=== PATIENT | male | born 1940 ===

== ENCOUNTER 2017-05-27 10:15 | Inpatient (IN) | payer MEDICARE ==
[2017-05-21 10:16] VITALS: BMI 27.8
[2017-05-27] MEDS ORDERED: (Novolin R) Insulin Human Regular 100 units/ml vial IV ONE ×3 (11:07→12:25)
[2017-05-27] MEDS ORDERED: Sodium Chloride 0.9% 1,000 ML IV ONE (11:16)
[2017-05-27] MEDS ORDERED: Lidocaine 1% Inj (20ml) ONE (13:00)
[2017-05-27] MEDS ORDERED: Bupivacaine HCl 0.25% PF (10 ml) Inj ONE (13:00)
[2017-05-27] MEDS ORDERED: ceFAZolin IV 2 gm in Dextrose 2 GM/50 ML BAG IVPB ONE (13:00)
[2017-05-27] MEDS ORDERED: Propofol 10 mg/ml Inj (20 ML) ONE (13:11)
[2017-05-27] MEDS ORDERED: Lidocaine Hydrochloride 5 ML INJ ONE (13:12)
[2017-05-27] MEDS: Bupivacaine HCl 0.25% PF (10 ml) Inj ONE ×4 (13:51→14:45)
[2017-05-27] MEDS ORDERED: ePHEDrine 50 mg/ml Inj ONE (14:09)
[2017-05-27] MEDS ORDERED: HYDROmorphone 0.5 mg/0.5 ml ISec IVP PRN (15:03)
[2017-05-27] MEDS ORDERED: Oxycodone/Acetaminophen 5/325 mg Tab PO PRN (15:27)
[2017-05-27] MEDS ORDERED: Lactated Ringer's 1,000 ML IV ONE (16:00)
[2017-05-27 17:40] VITALS: RESP 20
--- NOTE | 2017-05-28 03:37 | OP ---
PROCEDURE DATE: 05/27/2017 PREOPERATIVE DIAGNOSIS: Bilateral incarcerated inguinal hernias. POSTOPERATIVE DIAGNOSIS: Bilateral incarcerated inguinal hernias. PROCEDURE PERFORMED: Repair of incarcerated bilateral inguinal hernias. SURGEON: Anshu Sy MD ANESTHESIA: General endotracheal. ESTIMATED BLOOD LOSS: 30 mL. POSTOPERATIVE CONDITION: Stable. INDICATIONS FOR SURGERY: This is a 76-year-old male presented with two painful large inguinal hernias who now will undergo bilateral repair. GROSS FINDINGS: The patient had bilateral incarcerated direct inguinal hernias. They were very large in size and extra large ProLoop plug had to be used in order to repair defects. Both were associated with large cord lipomas which were removed. DESCRIPTION OF PROCEDURE: The patient was taken to the operating room, general anesthesia was administered, and the abdomen was prepped and draped with attention to the left groin, thighs, penis, and scrotum. Standard left inguinal incision was made and external oblique aponeurosis was opened after bleeding was controlled using the Bovie. The spermatic cord was looped with a Carlos drain. The large hernia sac was tediously dissected off the cord, found to be a direct hernia sac. There was bleeding from the spermatic artery and the cord which was repaired with 6-0 Prolene and documented, repaired by Doppler. The large cord lipoma was also removed and sent for specimen. The base of the hernia was scored using the Bovie and the hernia was then reduced. An extra large ProLoop hernia plug was introduced into the hernia defect and sutured in place with interrupted 2-0 Prolene suture. The wound was irrigated with copious amounts of saline solution. Wound was closed in layers with heavy Monocryl and tissue flap closure was performed to close the space. The above was repeated on the right side except for repair of the spermatic artery. The patient tolerated the procedure well. Returned to recovery room in stable condition. Anshu Sy MD
[2017-05-28] MEDS: Levothyroxine 50 MCG TAB PO SCH (06:33)
[2017-05-28 07:17] LABS: BASO % 0.3 % (0.0-2.0); EOS % 0.5 % (0.0-4.0); LYMPH # 1.1 K/uL (1.0-4.3); LYMPH % 13.3 % (20.0-40.0); MEAN CELL VOLUME 94.7 fL (80.0-94.0); MEAN CORPUSCULAR HEMOGLOBIN 33.4 pg (27.0-31.0); MEAN CORPUSCULAR HGB CONC 35.3 g/dL (33.0-37.0); MEAN PLATELET VOLUME 9.9 fL (7.2-11.7); MONO # 0.7 K/uL (0.0-0.8); MONO % 8.3 % (0.0-10.0); NEUT # 6.2 K/uL (1.8-7.0); NEUT % 77.6 % (50.0-75.0); RBC 4.35 Mil/uL (4.40-5.90); RED CELL DISTRIBUTION WIDTH 12.6 % (11.5-14.5)
[2017-05-28 07:43] LABS: BLOOD UREA NITROGEN 15 mg/dL (9-20); CALCIUM 8.1 mg/dl (8.6-10.4); GFR AFRICAN-AMERICAN > 60; GFR NON-AFRICAN AMERICAN > 60; HEMOGLOBIN 14.5 g/dL (12.0-18.0)
[2017-05-28] MEDS ORDERED: Potassium Chloride 20 mEq/15 ml LIQ UD PO ONE (10:00)
[2017-05-28] MEDS: Enoxaparin 40 mg Syringe SC SCH (10:03)
[2017-05-28] MEDS: NIFEdipine 60 mg ER Tab PO SCH (10:04)
[2017-05-28] MEDS: (Novolin R) Insulin Human Regular 100 units/ml vial SC SCH ×3 (12:30→21:36)
[2017-05-28] MEDS ORDERED: Sodium Chloride 0.9% 1,000 ML IV SCH (14:30)
--- NOTE | 2017-05-28 15:19 | CP.PCM.CON ---
<Cindy Valencia - Last Filed: 05/28/17 17:43> History of Present Illness - History of Present Illness History of Present Illness: Medicine Consult Note for Hospitalist Service- Dr. Rizwana Gomez CC: Medical Management HPI: 76 Male with PMHx HTN, DM, CAD with 1 stent, Hypothyroidism s/p bilateral inguinal hernia repair. Medicine team was consulted for medical management. Patient reports after the surgery, he tried to ambulate to the bathroom and he started to feel dizzy and lightheaded. Patient rested on the bed until he felt better. Patient reports he last saw his PMD last week, were alterations to his diabetic medications were made. Patient does not recall what he is taking. His pharmacy was called and stated he is only taking amaryl. Patient received Metformin, Januvia, Amaryl and 10 insulin units IV today. Patient reports he ambulates without assistance at baseline. PMHx: HTN, DM, CAD with 1 stent, Hypothyroidism PSHx: PCI placement in 1975, left cataract surgery 2016, inguinal hernia repair (during this admission) Meds: Reviewed and called [facility] in - current med rec is accurate All: NKDA SHx: Admitted to smoking 6 cigarettes for 7 years, 10 years ago. Denied alcohol or illegal drug use FHx: Unremarkable HCM: Colonoscopy 10 years ago- benign PMD: Unsure of name but in [place] - last visit was 1 week ago. Denied having an advance directive. Stated POA is his , who lives with the patient. He has 5 children. Past Patient History - Past Medical History & Family History Past Medical History?: Yes - Past Social History Smoking Status: Unknown If Ever Smoked - CARDIAC Hx Cardiac Disorders: Yes Hx Hypercholesterolemia: Yes Hx Hypertension: Yes Other/Comment: CARDIAC STENT,CARDIAC CATHETERIZATION - HEENT Hx HEENT Problems: Yes Hx Cataracts: Yes (LEFT EYE) - ENDOCRINE/METABOLIC Hx Endocrine Disorders: Yes Hx Diabetes Mellitus Type 2: Yes - MUSCULOSKELETAL/RHEUMATOLOGICAL Hx Musculoskeletal Disorders: Yes Hx Arthritis: Yes - GASTROINTESTINAL Hx Gastrointestinal Disorders: Yes Hx Gastritis: Yes - PSYCHIATRIC Hx Substance Use: No - SURGICAL HISTORY Hx Surgeries: Yes Hx Cataract Extraction: Yes (LEFT EYE) Hx Cardiac Catheterization: Yes Hx Coronary Stent: Yes (X1) - ANESTHESIA Hx Anesthesia: Yes Hx Anesthesia Reactions: No Hx Malignant Hyperthermia: No Has any member of the family had a problem w/ anesthesia?: No Meds Home Medications: Home Medication List Medication Instructions Recorded Confirmed Type Glimepiride [amaRYL] 4 mg PO BID tab 05/28/17 Rx Losartan [Cozaar] 100 mg PO DAILY #30 tab 05/29/17 Rx NIFEdipine ER [Procardia XL] 90 mg PO DAILY #30 ter 05/29/17 Rx Allergies/Adverse Reactions: Allergies Allergy/AdvReac Type Severity Reaction Status Date / Time No Known Allergies Allergy Verified 01/01/16 07:39 - Medications Medications: Current Medications Amlodipine Besylate (Norvasc) 10 mg PO DAILY [facility] Last Admin: 05/28/17 10:07 Dose: 10 mg Carvedilol (Coreg) 25 mg PO BID [facility] Last Admin: 05/28/17 10:03 Dose: 25 mg Clopidogrel Bisulfate (Plavix) 75 mg PO DAILY [facility] Last Admin: 05/28/17 10:04 Dose: 75 mg Docusate Sodium (Colace) 100 mg PO BID [facility] Last Admin: 05/28/17 10:04 Dose: 100 mg Enoxaparin Sodium (Lovenox) 40 mg SC DAILY [facility] Last Admin: 05/28/17 10:03 Dose: 40 mg Famotidine (Pepcid) 20 mg IVP Q12 [facility] Last Admin: 05/28/17 10:05 Dose: 20 mg Glimepiride (Amaryl) 4 mg PO BID [facility] Last Admin: 05/28/17 10:05 Dose: Not Given Hydrochlorothiazide (Hydrodiuril) 25 mg PO DAILY [facility] Last Admin: 05/28/17 10:03 Dose: 25 mg Cefazolin Sodium 1,000 mg/ (Sodium Chloride) 100 mls @ 100 mls/hr IVPB Q8H [facility] Last Admin: 05/28/17 14:40 Dose: 100 mls/hr Insulin Human Regular (Novolin R) 0 unit SC ACHS [facility] PRN Reason: Protocol Last Admin: 05/28/17 12:30 Dose: 2 unit Levothyroxine Sodium (Synthroid) 50 mcg PO DAILY@0630 [facility] Last Admin: 05/28/17 06:33 Dose: 50 mcg Losartan Potassium (Cozaar) 100 mg PO DAILY [facility] Last Admin: 05/28/17 10:04 Dose: 100 mg Metformin HCl (Glucophage) 1,000 mg PO BID [facility] Last Admin: 05/28/17 10:33 Dose: Not Given Nifedipine (Procardia Xl) 60 mg PO DAILY [facility] Last Admin: 05/28/17 10:04 Dose: 60 mg Ondansetron HCl (Zofran Inj) 4 mg IVP Q8H PRN PRN Reason: Nausea/Vomiting Oxycodone/Acetaminophen (Percocet 5/325 Mg Tab) 2 tab PO Q4H PRN PRN Reason: pain Stop: 05/30/17 15:28 Last Admin: 05/27/17 18:45 Dose: 2 tab Rosuvastatin Calcium (Crestor) 5 mg PO HS [facility] Last Admin: 05/27/17 22:16 Dose: 5 mg Sitagliptin Phosphate (Januvia) 50 mg PO BID [facility] Last Admin: 05/28/17 10:06 Dose: Not Given Physical Exam - Constitutional Appears: No Acute Distress - Head Exam Head Exam: NORMAL INSPECTION, NORMOCEPHALIC - Eye Exam Eye Exam: EOMI, Normal appearance, PERRL Pupil Exam: NORMAL ACCOMODATION - ENT Exam ENT Exam: Mucous Membranes Moist, Normal Exam - Respiratory Exam Respiratory Exam: NORMAL BREATHING PATTERN. absent: Decreased Breath Sounds, Clear to Auscultation Bilateral, Wheezes - Cardiovascular Exam Cardiovascular Exam: REGULAR RHYTHM, RRR, +S1, +S2 - GI/Abdominal Exam GI & Abdominal Exam: Soft. absent: Distended, Tenderness Additional comments: Bilateral surgical incisions; suzanne - Rectal Exam Rectal Exam: Deferred - Extremities Exam Extremities exam: Positive for: normal inspection, pedal pulses present. Negative for: pedal edema, tenderness - Neurological Exam Neurological exam: Alert, CN II-XII Intact, Oriented x3 - Skin Skin Exam: Dry, Intact, Normal Color, Warm Results - Vital Signs Recent Vital Signs: Last Vital Signs Temp 98.1 F 05/28/17 01:00 Pulse 62 05/28/17 14:00 Resp 20 05/28/17 14:00 BP 106/69 05/28/17 14:00 Pulse Ox 96 05/28/17 14:00 - Labs Result Diagrams: 05/28/17 06:49 05/28/17 06:49 Labs: Laboratory Results - last 24 hr 05/27/17 05/28/17 05/28/17 21:01 06:49 06:49 WBC 8.0 RBC 4.35 L Hgb 14.5 D Hct 41.2 MCV 94.7 H MCH 33.4 H MCHC 35.3 RDW 12.6 Plt Count 148 MPV 9.9 Neut % (Auto) 77.6 H Lymph % (Auto) 13.3 L [place] % (Auto) 8.3 Eos % (Auto) 0.5 Baso % (Auto) 0.3 Neut # (Auto) 6.2 Lymph # (Auto) 1.1 [place] # (Auto) 0.7 Eos # (Auto) 0.0 Baso # (Auto) 0.0 Sodium 129 L Potassium 3.0 L Chloride 92 L Carbon Dioxide 27 Anion Gap 13 BUN 15 Creatinine 0.9 Est GFR ( Amer) > 60 Est GFR (Non-Af Amer) > 60 POC Glucose (mg/dL) 222 H Random Glucose 219 H Calcium 8.1 L 05/28/17 05/28/17 07:28 12:01 WBC RBC Hgb Hct MCV MCH MCHC RDW Plt Count MPV Neut % (Auto) Lymph % (Auto) [place] % (Auto) Eos % (Auto) Baso % (Auto) Neut # (Auto) Lymph # (Auto) [place] # (Auto) Eos # (Auto) Baso # (Auto) Sodium Potassium Chloride Carbon Dioxide Anion Gap BUN Creatinine Est GFR ( Amer) Est GFR (Non-Af Amer) POC Glucose (mg/dL) 221 H 249 H Random Glucose Calcium Assessment & Plan - Assessment and Plan (Free Text) Plan: S/P Bilateral Inguinal Hernia Repair Performed by General Surgery - Dr. Sy All surgical management as per Surgeon Hyponatremia Most likely 2/2 to HCTZ use Will DC HCTZ, increase Procardia xL to 90mg PO daily Hypokalemia Low Magnesium Repleted Continue to monitor HTN Resumed home medications confirmed with Pharmacy: Coreg 25mg PO BID, HCTZ- Cozaar combo 25mg/100, Procardia xL 60mg PO daily Patient received norvasc 10mg PO today - this was DC Will DC HCTZ, increase Procardia xL to 90mg PO daily due to hyponatremia and worsening hyperglycemia 2/2 HCTZ T2DM Accuchecks Q6H for today, ACHS tomorrow Continue home medication: Simvastatin 20mg PO daily Held home medications: Amaryl 4mg PO BID - due to receiving Metformin, Januvia, Amaryl and 10 insulin units IV today Patient will need to see PMD for medication adjustment; which was currently happening but patient does not have prescriptions Consistent Carb Diet A1C: 10.8 Will continue to monitor closely CAD with 1 stent Continue home medication: Plavix 75mg PO daily Will reach out to PMD about Plavix Hypothyroidism Continue home medication: Synthroid 50mg PO daily Prophylactic Measures GI PPX: Pepcid 20mg IVP Q12 DVT PPX: Lovenox 40mg SC daily DW Cindy Ybarra DO, PGY-1 <Rolly Gomez J - Last Filed: 05/29/17 17:55> Results - Vital Signs Recent Vital Signs: Last Vital Signs Temp 98.8 F 05/29/17 07:58 Pulse 76 05/29/17 12:15 Resp 20 05/29/17 07:58 BP 130/72 05/29/17 12:15 Pulse Ox 96 05/29/17 12:15 - Labs Result Diagrams: 05/29/17 08:02 05/29/17 16:52 Labs: Laboratory Results - last 24 hr 05/28/17 05/29/17 05/29/17 20:44 07:18 08:02 WBC 8.6 RBC 4.18 L Hgb 14.2 Hct 39.4 MCV 94.2 H MCH 34.0 H MCHC 36.1 RDW 12.6 Plt Count 152 MPV 9.7 Neut % (Auto) 77.4 H Lymph % (Auto) 13.5 L [place] % (Auto) 8.7 Eos % (Auto) 0.2 Baso % (Auto) 0.2 Neut # (Auto) 6.7 Lymph # (Auto) 1.2 [place] # (Auto) 0.8 Eos # (Auto) 0.0 Baso # (Auto) 0.0 Sodium Potassium Chloride Carbon Dioxide Anion Gap BUN Creatinine Est GFR ( Amer) Est GFR (Non-Af Amer) POC Glucose (mg/dL) 200 H 227 H Random Glucose Calcium Phosphorus Magnesium Total Bilirubin AST ALT Alkaline Phosphatase Total Protein Albumin Globulin Albumin/Globulin Ratio Triglycerides Cholesterol LDL Cholesterol Direct HDL Cholesterol Free T4 05/29/17 05/29/17 05/29/17 08:02 08:02 11:28 WBC RBC Hgb Hct MCV MCH MCHC RDW Plt Count MPV Neut % (Auto) Lymph % (Auto) [place] % (Auto) Eos % (Auto) Baso % (Auto) Neut # (Auto) Lymph # (Auto) [place] # (Auto) Eos # (Auto) Baso # (Auto) Sodium 131 L Potassium 3.0 L Chloride 93 L Carbon Dioxide 28 Anion Gap 13 BUN 15 Creatinine 1.1 Est GFR ( Amer) > 60 Est GFR (Non-Af Amer) > 60 POC Glucose (mg/dL) 277 H Random Glucose 223 H Calcium 8.5 L Phosphorus 2.3 L Magnesium 2.0 Total Bilirubin 0.9 AST 22 ALT 15 L Alkaline Phosphatase 62 Total Protein 6.9 Albumin 3.4 L Globulin 3.4 Albumin/Globulin Ratio 1.0 Triglycerides 97 Cholesterol 123 LDL Cholesterol Direct 56 HDL Cholesterol 31 Free T4 1.87 05/29/17 16:52 WBC RBC Hgb Hct MCV MCH MCHC RDW Plt Count MPV Neut % (Auto) Lymph % (Auto) [place] % (Auto) Eos % (Auto) Baso % (Auto) Neut # (Auto) Lymph # (Auto) [place] # (Auto) Eos # (Auto) Baso # (Auto) Sodium 132 Potassium 4.1 Chloride 93 L Carbon Dioxide 29 Anion Gap 14 BUN 14 Creatinine 1.0 Est GFR ( Amer) > 60 Est GFR (Non-Af Amer) > 60 POC Glucose (mg/dL) Random Glucose 233 H Calcium 8.8 Phosphorus Magnesium Total Bilirubin AST ALT Alkaline Phosphatase Total Protein Albumin Globulin Albumin/Globulin Ratio Triglycerides Cholesterol LDL Cholesterol Direct HDL Cholesterol Free T4 Attending/Attestation - Attestation I have personally seen and examined this patient.: Yes I have fully participated in the care of the patient.: Yes I have reviewed all pertinent clinical information: Yes Notes (Text): 05/29/17 17:53 Patient was seen and examined on 05/28/17 shortly after resident. History, Physical, Assessment and Plan were gone over with the resident. Rolly Gomez D.O.
[2017-05-28 16:34] LABS: MAGNESIUM 1.5 mg/dL (1.6-2.3)
[2017-05-28] MEDS ORDERED: Glucagon Recombinant 1 mg Inj IM PRN (16:44)
[2017-05-28] MEDS ORDERED: Dextrose 50% SYRINGE Inj (50 ml) IV PRN (16:44)
[2017-05-28] MEDS ORDERED: Magnesium Sulfate 1 gm in D5W 1 GM/100 ML BAG IVPB ONE (17:00)
[2017-05-28 17:26] LABS: T4 10.2 ug/dL (5.5-11.0)
[2017-05-29] MEDS: Levothyroxine 50 MCG TAB PO SCH (05:36)
--- NOTE | 2017-05-29 07:18 | CP.PCM.PN ---
<Cindy Valencia - Last Filed: 05/29/17 11:05> Subjective - Date & Time of Evaluation Date of Evaluation: 05/29/17 Time of Evaluation: 07:00 - Subjective Subjective: Medicine Note for Hospitalist Service- Dr. Rizwana Gomez Patient was seen and examined at bedside. No acute complaints, patient reports he is tolerating diet and ambulating well. Denied fever, chills, headache, chest pain, abdominal pain, n/v/d/c, or urinary symptoms. Objective - Vital Signs/Intake and Output Vital Signs (last 24 hours): Temp Pulse Resp BP Pulse Ox 98.9 F 86 20 106/69 94 L 05/28/17 16:00 05/28/17 16:00 05/28/17 16:00 05/28/17 17:08 05/28/17 16:00 Intake and Output: 05/29/17 05/29/17 06:59 18:59 Intake Total 100 Balance 100 - Medications Medications: Current Medications Carvedilol (Coreg) 25 mg PO BID [facility] Last Admin: 05/28/17 17:08 Dose: 25 mg Clopidogrel Bisulfate (Plavix) 75 mg PO DAILY [facility] Last Admin: 05/28/17 10:04 Dose: 75 mg Dextrose (Dextrose 50% Inj) 0 ml IV STAT PRN; Protocol PRN Reason: Hypoglycemia Protocol Dextrose (Glutose 15) 0 gm PO ONCE PRN; Protocol PRN Reason: Hypoglycemia Protocol Docusate Sodium (Colace) 100 mg PO BID [facility] Last Admin: 05/28/17 17:07 Dose: 100 mg Enoxaparin Sodium (Lovenox) 40 mg SC DAILY [facility] Last Admin: 05/28/17 10:03 Dose: 40 mg Famotidine (Pepcid) 20 mg IVP Q12 [facility] Last Admin: 05/28/17 21:34 Dose: 20 mg Glucagon (Glucagen Diagnostic Kit) 0 mg IM STAT PRN; Protocol PRN Reason: Hypoglycemia Protocol Cefazolin Sodium 1,000 mg/ (Sodium Chloride) 100 mls @ 100 mls/hr IVPB Q8H [facility] Last Admin: 05/29/17 05:11 Dose: 100 mls/hr Dextrose (Dextrose 5% In Water 1000 Ml) 1,000 mls @ 0 mls/hr IV .Q0M PRN; Protocol; Per Protocol PRN Reason: Hypoglycemia Protocol Insulin Human Regular (Novolin R) 0 unit SC ACHS [facility] PRN Reason: Protocol Last Admin: 05/28/17 21:36 Dose: Not Given Levothyroxine Sodium (Synthroid) 50 mcg PO DAILY@0630 [facility] Last Admin: 05/29/17 05:36 Dose: 50 mcg Losartan Potassium (Cozaar) 100 mg PO DAILY [facility] Last Admin: 05/28/17 10:04 Dose: 100 mg Nifedipine (Procardia Xl) 60 mg PO DAILY [facility] Last Admin: 05/28/17 10:04 Dose: 60 mg Ondansetron HCl (Zofran Inj) 4 mg IVP Q8H PRN PRN Reason: Nausea/Vomiting Oxycodone/Acetaminophen (Percocet 5/325 Mg Tab) 2 tab PO Q4H PRN PRN Reason: pain Stop: 05/30/17 15:28 Last Admin: 05/27/17 18:45 Dose: 2 tab Rosuvastatin Calcium (Crestor) 5 mg PO HS [facility] Last Admin: 05/28/17 21:36 Dose: 5 mg Saccharomyces Boulardii (Florastor) 250 mg PO BID [facility] - Labs Labs: 05/28/17 06:49 05/28/17 06:49 - Additional Findings Additional findings: - Constitutional Appears: No Acute Distress - Head Exam Head Exam: NORMAL INSPECTION, NORMOCEPHALIC - Eye Exam Eye Exam: EOMI, Normal appearance, PERRL Pupil Exam: NORMAL ACCOMODATION - ENT Exam ENT Exam: Mucous Membranes Moist, Normal Exam - Respiratory Exam Respiratory Exam: NORMAL BREATHING PATTERN. absent: Decreased Breath Sounds, Clear to Auscultation Bilateral, Wheezes - Cardiovascular Exam Cardiovascular Exam: REGULAR RHYTHM, RRR, +S1, +S2 - GI/Abdominal Exam GI & Abdominal Exam: Soft. absent: Distended, Tenderness Additional comments: Bilateral surgical incisions; suzanne - Rectal Exam Rectal Exam: Deferred - Extremities Exam Extremities exam: Positive for: normal inspection, pedal pulses present. Negative for: pedal edema, tenderness - Neurological Exam Neurological exam: Alert, CN II-XII Intact, Oriented x3 - Skin Skin Exam: Dry, Intact, Normal Color, Warm Assessment and Plan - Assessment and Plan (Free Text) Plan: S/P Bilateral Inguinal Hernia Repair Performed by General Surgery - Dr. Sy All surgical management as per Surgeon Hyponatremia Most likely 2/2 to HCTZ use Will DC HCTZ, increase Procardia xL to 90mg PO daily Hypokalemia Low Magnesium Repleted Continue to monitor HTN Resumed home medications confirmed with Pharmacy: Coreg 25mg PO BID, HCTZ- Cozaar combo 25mg/100, Procardia xL 60mg PO daily Patient received norvasc 10mg PO today - this was DC Will DC HCTZ, increase Procardia xL to 90mg PO daily due to hyponatremia and worsening hyperglycemia 2/2 HCTZ T2DM Accuchecks Q6H for yesterday, ACHS today Will continue to monitor closely - sugars trended well throughout the night Continue home medication: Simvastatin 20mg PO daily Held home medications: Amaryl 4mg PO BID - due to receiving Metformin, Januvia, Amaryl and 10 insulin units IV today Patient will need to see PMD for medication adjustment; which was happening currently but patient does not have prescriptions Consistent Carb Diet A1C: 10.8 CAD with 1 stent Continue home medication: Plavix 75mg PO daily Patient will need to talk to Dr. Jean to determine why he is still on Plavix Hypothyroidism Continue home medication: Synthroid 50mg PO daily Prophylactic Measures GI PPX: Pepcid 20mg IVP Q12 DVT PPX: Lovenox 40mg SC daily DISPOSITION: MEDICINE TEAM WILL BE SIGNING OFF THIS PATIENT. Medication adjustments have been made. Labs and imaging were reviewed; electrolytes repleted. Medicine team will be signing off this patient. Patient is to follow up with PMD for adjustments to his diabetic medications. He is to follow up with Dr. Sy for incision site check in 7-10 days. DW Cindy Ybarra DO, PGY-1 <Rolly Gomez - Last Filed: 05/29/17 17:52> Objective - Vital Signs/Intake and Output Vital Signs (last 24 hours): Temp Pulse Resp BP Pulse Ox 98.8 F 76 20 130/72 96 05/29/17 07:58 05/29/17 12:15 05/29/17 07:58 05/29/17 12:15 05/29/17 12:15 Intake and Output: 05/29/17 05/29/17 06:59 18:59 Intake Total 800 Balance 800 - Labs Labs: 05/29/17 08:02 05/29/17 16:52 Attending/Attestation - Attestation I have personally seen and examined this patient.: Yes I have fully participated in the care of the patient.: Yes I have reviewed all pertinent clinical information, including history, physical exam and plan: Yes Notes (Text): 05/29/17 17:52 Patient was seen shortly after resident. Exam, assessment and plan and discharge instructions were gone over with the resident. Rolly Gomez D.O.
[2017-05-29 08:00] VITALS: PULSE 76; TEMP 98.8; O2SAT 96
[2017-05-29 08:13] LABS: BASO % 0.2 % (0.0-2.0); EOS % 0.2 % (0.0-4.0); HEMOGLOBIN 14.2 g/dL (12.0-18.0); LYMPH # 1.2 K/uL (1.0-4.3); LYMPH % 13.5 % (20.0-40.0); MEAN CELL VOLUME 94.2 fL (80.0-94.0); MEAN CORPUSCULAR HGB CONC 36.1 g/dL (33.0-37.0); MEAN PLATELET VOLUME 9.7 fL (7.2-11.7); MONO # 0.8 K/uL (0.0-0.8); MONO % 8.7 % (0.0-10.0); NEUT # 6.7 K/uL (1.8-7.0); NEUT % 77.4 % (50.0-75.0); NRBC % 0.1 % (0.0-2.0); RBC 4.18 Mil/uL (4.40-5.90); RED CELL DISTRIBUTION WIDTH 12.6 % (11.5-14.5); WHITE BLOOD COUNT 8.6 K/uL (4.8-10.8)
[2017-05-29] MEDS: (Novolin R) Insulin Human Regular 100 units/ml vial SC SCH ×3 (08:31→16:54)
[2017-05-29 08:38] LABS: ALBUMIN 3.4 g/dL (3.5-5.0); ALT/SGPT 15 U/L (21-72); AST/SGOT 22 U/L (17-59); BLOOD UREA NITROGEN 15 mg/dL (9-20); CALCIUM 8.5 mg/dl (8.6-10.4); GFR AFRICAN-AMERICAN > 60; GFR NON-AFRICAN AMERICAN > 60; HDL CHOLESTEROL 31 mg/dL (30-70)
[2017-05-29 08:49] LABS: LDL CHOLESTEROL 56 mg/dL (0-129)
[2017-05-29] MEDS ORDERED: Saccharomyces Boulardi 250 mg Cap PO SCH (10:00)
[2017-05-29] MEDS: Enoxaparin 40 mg Syringe SC SCH (10:36)
[2017-05-29] MEDS: Potassium Chloride 20 mEq ER Tab PO SCH ×2 (10:37→14:30)
[2017-05-29] MEDS: NIFEdipine 60 mg ER Tab PO SCH (11:00)
[2017-05-29] MEDS ORDERED: Potassium & Sodium Phosphate PO SCH (12:00)
[2017-05-29] MEDS ORDERED: Potassium & Sodium Phosphate PO ONE ×2 (12:00→14:00)
[2017-05-29 14:05] VITALS: BP 130/72
[2017-05-29 17:11] LABS: BLOOD UREA NITROGEN 14 mg/dL (9-20); CALCIUM 8.8 mg/dl (8.6-10.4); GFR AFRICAN-AMERICAN > 60; GFR NON-AFRICAN AMERICAN > 60
== END 2017-05-29 17:35 | disposition home or self-care (01) | DRG 352 ==
LOC: C.SDS 10:15 → C.9E 15:40 → C.3T 17:33
PROVIDERS: ADMIT Surgery; ATTEND Surgery
PROC: 0JBC0ZZ Excision of Pelvic Region Subcutaneous Tissue and Fascia, Open Approach (ICD-10-PCS; 2017-05-27)
PROC: 04QY0ZZ Repair Lower Artery, Open Approach (ICD-10-PCS; 2017-05-27)
PROC: 0YUA0JZ Supplement Bilateral Inguinal Region with Synthetic Substitute, Open Approach (ICD-10-PCS; principal; 2017-05-27 13:30)
DX: K40.00 Bilateral inguinal hernia, with obstruction, without gangrene, not specified as recurrent (principal); D17.6 Benign lipomatous neoplasm of spermatic cord; R58 Hemorrhage, not elsewhere classified

== ENCOUNTER 2018-05-27 10:19 | Emergency (ER) | payer MEDICARE ==
[2018-05-27 10:24] VITALS: BMI 26.5
[2018-05-27 10:27] VITALS: RESP 18
[2018-05-27] MEDS ORDERED: Sodium Chloride 0.9% 1,000 ML IV ONE (10:54)
--- NOTE | 2018-05-27 11:07 | C.PDOC ---
History Of Present Illness This is a 77 year old male with past medical history of hypertension, hyperlipidemia, diabetes, CAD with PCI placement who presents for BRBPR x 2 episodes. Patient reports this morning he woke up and had the sensation to move his bowels and reported having loose bowel movement with bright red blood. He went to shop around in [place] and had to return home quickly because he had the sensation to defecate again. This time he noted he had blood on his underwear. He then had a second bowel movement with streaks of bright red blood. He denied any associated abdominal pain, chest pain, palpitations, shortness of breath, weakness, fatigue, or dizziness. Patient admits to taking ASA and plavix, last doses were yesterday morning. This has happened to him in the past, where he had external hemorrhoids. Last colonoscopy was >5 years ago through our [facility] which was unremarkable. PMD: Dr. Smiley (last seen within 1 month) <Cindy Valencia - Last Filed: 05/27/18 14:59> <Cindy Valencia - Last Filed: 05/27/18 14:59> <Chema Costello DO - Last Filed: 05/27/18 18:39> Time Seen by Provider: 05/27/18 10:36 Chief Complaint (Nursing): GI Problem Past Medical History Vital Signs: Last Vital Signs Temp 97.5 F L 05/27/18 10:24 Pulse 78 05/27/18 10:24 Resp 18 05/27/18 10:24 BP 183/98 H 05/27/18 10:24 Pulse Ox 98 05/27/18 10:24 - Medical History PMH: Arthritis, Colonic Polyps, Diabetes, Gastritis, HTN, Hypercholesterolemia Surgical History: Coronary Stent (X1) - [facility] Procedures EXCISION OF PELVIC SUBCU/FASCIA, OPEN APPROACH (05/27/17) REPAIR LOWER ARTERY, OPEN APPROACH (05/27/17) SUPPLEMENT BI INGUINAL REGION WITH SYNTH SUB, OPEN APPROACH (05/27/17) Family History: States: Unknown Family Hx - Social History Hx Tobacco Use: No Hx Alcohol Use: No Hx Substance Use: No <Cindy Valencia - Last Filed: 05/27/18 14:59> Vital Signs: Last Vital Signs Temp 98.1 F 05/27/18 14:49 Pulse 72 05/27/18 14:49 Resp 18 05/27/18 14:49 BP 167/96 H 05/27/18 14:49 Pulse Ox 98 05/27/18 15:00 - [facility] Procedures EXCISION OF PELVIC SUBCU/FASCIA, OPEN APPROACH (05/27/17) REPAIR LOWER ARTERY, OPEN APPROACH (05/27/17) SUPPLEMENT BI INGUINAL REGION WITH SYNTH SUB, OPEN APPROACH (05/27/17) <Chema Costello DO - Last Filed: 05/27/18 18:39> Review Of Systems Constitutional: Negative for: Fever, Chills, Sweats, Weakness, Weight loss Cardiovascular: Negative for: Chest Pain, Palpitations Respiratory: Negative for: Shortness of Breath Gastrointestinal: Positive for: Hematochezia. Negative for: Nausea, Vomiting, Abdominal Pain, Rectal Pain Genitourinary: Negative for: Dysuria, Frequency, Hematuria Neurological: Negative for: Dizziness <Cindy Valencia - Last Filed: 05/27/18 14:59> Physical Exam - Physical Exam Appears: Well, Non-toxic, No Acute Distress Skin: Normal Color, Warm, Dry Head: Atraumatic, Normacephalic Cardiovascular: Rhythm Regular Gastrointestinal/Abdominal: Normal Exam, Bowel Sounds, Soft, No Tenderness, No Organomegaly, No Mass, No Distention, No Guarding, No Rebound Rectal: Maroon Stool Pulses: Left Radial: Normal, Right Radial: Normal Neurological/Psych: Oriented x3, Normal Speech, Normal Cognition <Cindy Valencia - Last Filed: 05/27/18 14:59> ED Course And Treatment - Laboratory Results Result Diagrams: 05/27/18 11:20 05/27/18 11:20 O2 Sat by Pulse Oximetry: 98 <Cindy Valencia - Last Filed: 05/27/18 14:59> - Laboratory Results Result Diagrams: 05/27/18 15:03 05/27/18 11:20 Lab Results: PT 12.1 SECONDS (9.7-12.2) 05/27/18 11:20 INR 1.1 05/27/18 11:20 APTT 30 SECONDS (21-34) 05/27/18 11:20 Total Bilirubin 0.7 mg/dL (0.2-1.3) 05/27/18 11:20 AST 27 U/L (17-59) 05/27/18 11:20 ALT 15 U/L (21-72) L 05/27/18 11:20 Alkaline Phosphatase 119 U/L (38-126) 05/27/18 11:20 Total Protein 7.2 g/dL (6.3-8.3) 05/27/18 11:20 Albumin 4.1 g/dL (3.5-5.0) 05/27/18 11:20 Globulin 3.1 gm/dL (2.2-3.9) 05/27/18 11:20 Albumin/Globulin Ratio 1.3 (1.0-2.1) 05/27/18 11:20 <Chema Costello DO - Last Filed: 05/27/18 18:39> Medical Decision Making Medical Decision Making: Rectal Bleed - Maroon stool on MACY, no internal or external hemorrhoids noted - Patient on ASA, Plavix - Last Colonoscopy > 5 years unremarkable - Vitals stable, ROS unremarkable - Labs, CT Abdomen - Will reassess -- Patient reports he had 2 more BM of loose maroon colored stool - 13:30pm -- Pending CT Abdomen --- CT scan revealed possible colitis/ diverticulitis. --- Patient reported 2 more bowel movements of maroon colored stool - total 4 since arrival --- Will repeat CBC, if stable will DC. --- Patient is asymptomatic, a febrile, stable vitals, --- Will encourage patient to follow up with PMD within 1-[address] Smiley. ---- This is the patient's first occurrence of diverticulitis. Will treat with Cipro and Flagyl x 10 day course (with the addition of an over the counter probiotic x 1 month), encourage follow up with GI once diverticulitis has resolved. Will educate patient on having a bland diet. If patient develops fevers, chills, abdominal pain, or worsening rectal bleeding instructed to return to the ED. <Cindy Valencia - Last Filed: 05/27/18 14:59> Disposition Doctor Will See Patient In The: Office Counseled Patient/Family Regarding: Studies Performed, Diagnosis, Need For Followup, Rx Given - POA Present On Arrival: None <Cindy Valencia - Last Filed: 05/27/18 14:59> - Disposition Disposition Time: 13:40 <PassChema alberto DO - Last Filed: 05/27/18 18:39> - Disposition Referrals: [facility], [Non-Staff] - Disposition: HOME/ ROUTINE Condition: GOOD Additional Instructions: JENNIFER VALENTE, thank you for letting us take care of you today. The emergency medical care you received today was directed at your acute symptoms. If you were prescribed any medication, please fill it and take as directed. It may take several days for your symptoms to resolve. Return to the Emergency Department if your symptoms worsen, do not improve, or if you have any other problems. Please contact your doctor or call one of the physicians/clinics you have been referred to that are listed on the Patient Visit Information form that is included in your discharge packet. Bring any paperwork you were given at dischar ge with you along with any medications you are taking to your follow up visit. Our treatment cannot replace ongoing medical care by a primary care provider outside of the emergency department. Thank you for allowing the [facility] team to be part of your care today. Take the antibiotics as prescribed and follow up with your primary care doctor in 1-2 days. You may need to be evaluated by a GI doctor. If you develop fevers, chills, abdominal pain, or worsening rectal bleeding instructed to return to the Emergency Room. JENNIFER VALENTE, yamini por dejarnos cuidar de usted lucila. La atencin mdica de emergencia que recibi hoy se dirigi a kalen sntomas agudos. Si le recetaron al gn medicamento, llnelo y tmelo segn las indicaciones. Los sntomas pueden tardar varios shay en resolverse. Regrese al Departamento de Emergencias si kalen sntomas empeoran, no mejoran o si tiene otros problemas. Comunquese con [facility] mdico o llame a steve de los mdicos / clnicas a los que dyson sido referido que figuran en el formulario de Informacin de visita al paciente que se incluye en eubanks paquete de scar. Lleve todos los documentos que le entregaron al momento del scar junto con todos los medicamentos que est tomando para eubanks visita de seguimiento. Nuestro tratamiento no puede reemplazar la atencin mdica continua por un proveedor de atencin primaria fuera del departamento de emergencias. Yamini por permitir que el equipo de [facility] sea parte de eubanks atencin hoy. [place] los antibiticos segn lo prescrito y pedro un seguimiento con eubanks mdico de atencin primaria en 1 o 2 shay. Es posible que tenga que ser evaluado por un mdico de GI. Si desarrolla fiebre, escalofros, dolor abdominal o empeoramiento del sangrado rectal se le indica que regrese a la rani de emergencias. Prescriptions: Ciprofloxacin HCl [Cipro] 500 mg PO Q12 #20 tab metroNIDAZOLE [Flagyl] 500 mg PO Q8H #30 tab Instructions: Diverticulitis (DC) Forms: V[employer] (Macanese) Print Language: STATELESS - Clinical Impression Clinical Impression: Diverticulitis - PA / OPHTHALMOLOGY SURGICAL TECHNICIAN / Resident Statement DIAMANTE has reviewed & agrees with the documentation as recorded. DIAMANTE has examined the patient and agrees with the treatment plan. <Chema Costello DO - Last Filed: 05/27/18 18:39>
[2018-05-27 11:23] LABS: BASO % 0.6 % (0.0-2.0); EOS # 0.1 K/uL (0.0-0.7); EOS % 2.3 % (0.0-4.0); HEMOGLOBIN 15.2 g/dL (12.0-18.0); LYMPH # 1.2 K/uL (1.0-4.3); LYMPH % 23.1 % (20.0-40.0); MEAN CELL VOLUME 96.1 fL (80.0-94.0); MEAN CORPUSCULAR HGB CONC 34.4 g/dL (33.0-37.0); MEAN PLATELET VOLUME 9.9 fL (7.2-11.7); MONO # 0.4 K/uL (0.0-0.8); MONO % 7.1 % (0.0-10.0); NEUT # 3.4 K/uL (1.8-7.0); NEUT % 66.9 % (50.0-75.0); NRBC % 0.1 % (0.0-2.0); RBC 4.61 Mil/uL (4.40-5.90); RED CELL DISTRIBUTION WIDTH 13.3 % (11.5-14.5); WHITE BLOOD COUNT 5.1 K/uL (4.8-10.8)
[2018-05-27 11:32] LABS: INR 1.1; PROTHROMBIN TIME 12.1 SECONDS (9.7-12.2)
[2018-05-27 11:37] LABS: ALB/GLOB RATIO 1.3 (1.0-2.1); ALBUMIN 4.1 g/dL (3.5-5.0); ALT/SGPT 15 U/L (21-72); AST/SGOT 27 U/L (17-59); BLOOD UREA NITROGEN 16 mg/dL (9-20); CALCIUM 8.7 mg/dl (8.6-10.4); GFR NON-AFRICAN AMERICAN > 60
[2018-05-27] MEDS ORDERED: Iodixanol 320 MG/ML 100 ML BOTTLE IV ONE (12:00)
--- NOTE | 2018-05-27 14:27 | CT ---
Date of service: 05/27/2018 PROCEDURE: CT Abdomen and Pelvis with contrast HISTORY: rectal bleeding on ASA / plavix COMPARISON: None available. TECHNIQUE: Contrast dose: 100 mL Visipaque 320 IV Radiation dose: Total exam DLP = 393.88 mGy-cm. This CT exam was performed using one or more of the following dose reduction techniques: Automated exposure control, adjustment of the mA and/or kV according to patient size, and/or use of iterative reconstruction technique. FINDINGS: LOWER THORAX: No visible consolidation, pleural effusion, or pneumothorax. Partially imaged 3 mm right middle lobe nodule (series 3, image 1). Small hiatal hernia/distal esophageal wall thickening. LIVER: Unremarkable. GALLBLADDER AND BILE DUCTS: Unremarkable. PANCREAS: Unremarkable. SPLEEN: Unremarkable. ADRENALS: Unremarkable. KIDNEYS AND URETERS: The kidneys enhance symmetrically. No hydronephrosis or obstructing calculus identified. 15 mm exophytic left renal hypodense mass measures higher than expected for a simple cyst (approximately 22 HU). VASCULATURE: No aortic aneurysm. Atherosclerotic calcifications of the aorta and branches. BOWEL: Stomach is nondistended. Lack of oral contrast limits evaluation for bowel pathology. Bowel loops appear within normal limits of caliber without evidence of obstruction. Colonic wall thickening and adjacent inflammatory changes noted at the sigmoid colon appear compatible with colitis or diverticulitis. Diverticula also noted scattered throughout the remainder of the colon. APPENDIX: The appendix appears within normal limits of caliber. No secondary signs of acute appendicitis. PERITONEUM: No significant free fluid. No definite free air. LYMPH NODES: No bulky adenopathy identified. BLADDER: Unremarkable. REPRODUCTIVE: Prostate gland measures approximately 3.7 x 4.3 cm. BONES: Degenerative changes of the spine. Osseous demineralization. OTHER FINDINGS: Bilateral fat and vessel containing inguinal hernias. IMPRESSION: Colonic wall thickening and adjacent inflammatory changes noted at the sigmoid colon appear compatible with colitis or diverticulitis. Correlate clinically. 15 mm exophytic left renal hypodense mass measures higher than expected for a simple cyst (approximately 22 HU). Suggest renal ultrasound for further evaluation. Partially imaged 3 mm right middle lobe pulmonary nodule. Additional findings as above.
[2018-05-27 14:50] VITALS: BP 167/96; PULSE 72; TEMP 98.1
[2018-05-27 15:00] VITALS: O2SAT 98
[2018-05-27 15:07] LABS: HEMOGLOBIN 15.8 g/dL (12.0-18.0); MEAN CELL VOLUME 96.3 fL (80.0-94.0); MEAN CORPUSCULAR HEMOGLOBIN 32.9 pg (27.0-31.0); MEAN CORPUSCULAR HGB CONC 34.2 g/dL (33.0-37.0); RBC 4.8 Mil/uL (4.40-5.90); RED CELL DISTRIBUTION WIDTH 13.3 % (11.5-14.5); WHITE BLOOD COUNT 6.2 K/uL (4.8-10.8)
== END 2018-05-27 15:45 | disposition home or self-care (01) ==
LOC: C.ER 10:19
DX: K57.92 Diverticulitis of intestine, part unspecified, without perforation or abscess without bleeding (principal)
CPT/HCPCS: 74177; 80053; 85025; 85027; 85610; 85730; 96360; 99284; J7030; Q9967